=== PATIENT | female | born 1995 | race Hispanic/Latino ===

== ENCOUNTER 2024-04-25 04:58 | Day surgery (SDC) | payer OTHER ==
[2024-04-25 05:36] VITALS: BMI 31.7
[2024-04-25] MEDS ORDERED: hydrALAZINE 20 MG/ML VIAL SLOW IVP PRN (05:56)
== END 2024-04-25 08:05 | disposition home or self-care (01) ==
LOC: CSHLD/OP 04:58
PROVIDERS: ATTEND Family Medicine
DX: O36.8130 Decreased fetal movements, third trimester, not applicable or unspecified (principal); O47.1 False labor at or after 37 completed weeks of gestation; Z79.899 Other long term (current) drug therapy; Z3A.38 38 weeks gestation of pregnancy
CPT/HCPCS: 76819; 99282